=== PATIENT | male | born 1990 | race Caucasian/White ===

== ENCOUNTER 2018-11-23 20:48 | Emergency (ER) | payer SELFPAY ==
--- NOTE | 2018-11-23 21:42 | ER Document Report ---
ED Medical Screen (RME) - General Chief Complaint: Difficulty Swallowing Stated Complaint: DIFFICULTY SWALLOWING Time Seen by Provider: 11/23/18 21:36 Primary Care Provider: BELA LEWIS MD [Primary Care Provider] - Follow up as needed Mode of Arrival: Ambulatory Information source: Patient Notes: 28-year-old male presented to ED for complaint of difficulty swallowing for about 6 to 8 weeks. He states sometimes he gets a sore throat with the difficulty swallowing. He states sometimes he feels like the chest sounds pops and then he has pain in the area but does not have pain except for when it pops. He states sometimes when he has difficulty swallowing he gets short of breath but he does not know whether it is because he is panicking or if it he is short of breath. Patient respirations regular and unlabored no shortness of breath at this time. Patient has a history of T&A and asthma as a child. I have greeted and performed a rapid initial assessment of this patient. A comprehensive ED assessment and evaluation of the patient, analysis of test results and completion of medical decision making process will be conducted by an additional ED providers. - Related Data Allergies/Adverse Reactions: No Known Allergies Allergy (Verified 11/23/18 21:18) Physical Exam - Vital signs Vitals: Temp Pulse Resp BP Pulse Ox 97.8 F 65 18 154/79 H 100 11/23/18 21:12 11/23/18 21:12 11/23/18 21:12 11/23/18 21:12 11/23/18 21:12 Course - Vital Signs Vital signs: Temp Pulse Resp BP Pulse Ox 97.8 F 65 18 154/79 H 100 11/23/18 21:12 11/23/18 21:12 11/23/18 21:12 11/23/18 21:12 11/23/18 21:12 Doctor's Discharge - Discharge Referrals: BELA LEWIS MD [Primary Care Provider] - Follow up as needed
--- NOTE | 2018-11-23 22:56 | RADIOLOGY REPORT (SQ) ---
EXAM DESCRIPTION: CLINICAL HISTORY: 28 years Male difficulty swallowing COMPARISON: None. TECHNIQUE: Two views FINDINGS: Vertebral body alignment is unremarkable. No acute fractures are identified. Odontoid appears intact in the lateral view. Open-mouth or SMV view of the odontoid was not provided IMPRESSION: No acute fracture is identified. CT could be obtained to better evaluate if there is continued clinical concern.
[2018-11-24] MEDS ORDERED: MAG HYDROX/AL HYDROX/SIMETH SUSP 30 ML UDCUP PO ONE (01:36)
[2018-11-24] MEDS ORDERED: LIDOCAINE 2% VISCOUS SOLN 20 ML UDCUP PO ONE (01:36)
[2018-11-24] MEDS ORDERED: METOCLOPRAMIDE HCL ORAL SOLN 10 MG/10 ML UDCUP PO ONE (01:36)
--- NOTE | 2018-11-24 01:43 | ER Document Report ---
ED General - General Chief Complaint: Difficulty Swallowing Stated Complaint: DIFFICULTY SWALLOWING Time Seen by Provider: 11/23/18 21:36 Primary Care Provider: KAREN ALEJO MD [ACTIVE STAFF] - Follow up in 1 week LILO COLLAZO MD [ACTIVE STAFF] - Follow up in 1 week Mode of Arrival: Ambulatory Notes: Patient is a 28-year-old male that comes to the emergency department for chief complaint of "throat discomfort". He points to his area just below his throat and neck, he states this area tends to get a discomfort sensation, he states that it feels full and then he will belch and then it would resolve. He states it also feels like he cannot swallow things intermittently, he states sometimes he swallows things and it feels like they are going to get stuck. He denies painful swallowing in his throat, he denies any possible foreign body, he denies injury, he denies difficulty breathing, he denies fever or chills. He denies abdominal pain, nausea/vomiting. He has never had an endoscopy. He denies any diagnosed medical problems. He denies any daily medications. He denies frequent alcohol, denies tobacco, denies recreational drugs. - Related Data Allergies/Adverse Reactions: No Known Allergies Allergy (Verified 11/23/18 21:18) Past Medical History - General Information source: Patient - Social History Smoking Status: Never Smoker Frequency of alcohol use: None Drug Abuse: None Lives with: Alone Family History: Reviewed & Not Pertinent - Medical History Medical History: Negative Surgical Hx: Negative - Immunizations Immunizations up to date: Yes Hx Diphtheria, Pertussis, Tetanus Vaccination: Yes Review of Systems - Review of Systems Constitutional: No symptoms reported EENT: See HPI Cardiovascular: No symptoms reported Respiratory: No symptoms reported Gastrointestinal: See HPI Genitourinary: No symptoms reported Male Genitourinary: No symptoms reported Musculoskeletal: No symptoms reported Skin: No symptoms reported Hematologic/Lymphatic: No symptoms reported Neurological/Psychological: No symptoms reported Physical Exam - Vital signs Vitals: Temp Pulse Resp BP Pulse Ox 97.8 F 65 18 154/79 H 100 11/23/18 21:12 11/23/18 21:12 11/23/18 21:12 11/23/18 21:12 11/23/18 21:12 - Notes Notes: GENERAL: Alert, interacts well. No acute distress. HEAD: Normocephalic, atraumatic. EYES: Pupils equal, round, and reactive to light. Extraocular movements intact. ENT: Oral mucosa moist, tongue midline. Oropharynx unremarkable. Airway patent. NECK: Full range of motion. Supple. Trachea midline. LUNGS: Clear to auscultation bilaterally, no wheezes, rales, or rhonchi. No respiratory distress. HEART: Regular rate and rhythm. No murmur ABDOMEN: Soft, non-tender. Non-distended. EXTREMITIES: Moves all 4 extremities spontaneously. No edema, normal radial and dorsalis pedis pulses bilaterally. No cyanosis. BACK: no cervical, thoracic, lumbar midline tenderness. NEUROLOGICAL: Alert and oriented x3. Normal speech. Cranial nerves II through XII grossly intact. PSYCH: Normal affect, normal mood. SKIN: Warm, dry, normal turgor. No rashes or lesions noted. Course - Re-evaluation Re-evalutation: I did review strep test and soft tissue x-ray of the neck from triage and these are both unremarkable as expected. Patient has some dysphasia symptoms. He is able to eat and drink without difficulty, he states he has a mild discomfort at this time. He does not have any chest pain or shortness of breath. He is very well-appearing without any signs of distress. I did discuss different options, decision was made to provide him with a GI cocktail now, treatment, testing recommendations for follow-up, and return precautions. Patient states appreciation and agreement. - Vital Signs Vital signs: Temp Pulse Resp BP Pulse Ox 98.0 F 67 16 139/91 H 100 11/24/18 01:43 11/24/18 01:43 11/24/18 01:43 11/24/18 01:43 11/24/18 01:43 Discharge - Discharge Clinical Impression: Dysphagia Qualifiers: Dysphagia type: unspecified Qualified Code(s): R13.10 - Dysphagia, unspecified Condition: Stable Disposition: HOME, SELF-CARE Additional Instructions: The imaging does not show any concerning finding. Your strep test was negative. Your evaluation is consistent with dysphagia, because of your symptoms we are attempting to treat this first by treating inflammation in the esophagus, take the Carafate and Pepcid as prescribed. If symptoms continue please follow-up with the referral, you may need endoscopy or even dilation. Make sure you chew food thoroughly before swallowing. Return for any concerning symptoms including if you become obstructed and cannot swallow, develop severe pain, vomiting, or any other concerning symptoms. Prescriptions: Sucralfate [Carafate 1 gm Tablet] 1 gm PO QID #20 tablet Famotidine [Pepcid 20 mg Tablet] 20 mg PO BID #14 tablet Referrals: LILO COLLAZO MD [ACTIVE STAFF] - Follow up in 1 week KAREN ALEJO MD [ACTIVE STAFF] - Follow up in 1 week
[2018-11-24 01:50] VITALS: BP 139/91
== END 2018-11-24 01:50 | disposition home or self-care (01) ==
LOC: ER 20:48
DX: R13.10 Dysphagia, unspecified (principal)
CPT/HCPCS: 87070; 87880; 70360; J3490; 99284